=== PATIENT | male | born 1975 | race Caucasian/White ===

== ENCOUNTER 2016-10-20 12:53 | Emergency (ER) | payer SELFPAY ==
[~2016-10-20] VITALS: Ht 160 cm; Wt 54.5 kg
[2016-10-20 13:05] VITALS: BP 127/109
== END 2016-10-20 18:51 | disposition left against medical advice (07) ==
LOC: EMS 12:54
DX: Z77.21 Contact with and (suspected) exposure to potentially hazardous body fluids (principal); F12.10 Cannabis abuse, uncomplicated
CPT/HCPCS: 96360; 96361; 99281; 99285